=== PATIENT | male | born 1990 | race Asian ===

== ENCOUNTER 2016-12-13 03:01 | Emergency (ER) | payer OTHER ==
[~2016-12-13] VITALS: Ht 167.6 cm; Wt 64.2 kg
[2016-12-13 03:03] VITALS: TEMP 36.4; Ht 167.6 cm; Wt 64.2 kg
[2016-12-13 03:10] VITALS: O2SAT 92
[2016-12-13 03:51] LABS: BUN/CREATININE RATIO 15.2 (10-20); CALCIUM 8.8 mg/dl (8.5-10.1); CREATININE 0.89 mg/dl (0.60-1.40)
--- NOTE | 2016-12-13 06:33 | EMERGENCY ROOM VISIT NOTE ---
History Report prepared by Roshan: Deonna Carver Under the Supervision of: Dr. Tonny Barrera M.D. First contact with patient: 03:08 Chief Complaint: ALCOHOL OVERDOSE Stated Complaint: ALCOHOL Nursing Triage Summary: pt brought to ed via ems. pt was found sitting on the ground moaning in an alley. pt admits to drinking liquor. denies drugs. History of Present Illness The patient is a 26 year old male who presents to the Emergency Room with complaints of an episode of an alcohol overdose occurring prior to arrival. Per EMS, the patient was found sitting in an alley. The patient states that was drinking vodka. The patient denies vomiting. HPI limited secondary to alcohol intoxication. Source of History: patient, EMS History Limited By: intoxication Onset: prior to arrival Position: other (global) Quality: other (global) Timing: other (episode) Associated Symptoms: No vomiting Review of Systems See HPI for pertinent positives & negatives. A total of 10 systems reviewed and were otherwise negative. Past Medical & Surgical Medical Problems: (1) No Known Active Medical Problems Family History No pertinent family history Social History Smoking Status: Current Every Day Smoker Alcohol Use: occasionally Marital Status: single Housing Status: lives with roommate Occupation Status: [employer] student Current/Historical Medications Unable to Obtain Active Prescriptions or Reported Meds Allergies Coded Allergies: No Known Allergies (Unverified Allergy, Mild, 06/29/05) Physical Exam Vital Signs Date Time Temp Pulse Resp B/P (MAP) Pulse Ox O2 Delivery O2 Flow Rate FiO2 12/13/16 10:29 68 17 107/67 96 12/13/16 09:16 61 17 98/61 96 Room Air 12/13/16 08:30 67 12/13/16 08:00 65 16 94/59 96 Room Air 12/13/16 07:11 71 16 96/54 93 Room Air 12/13/16 06:00 90 16 104/84 93 Room Air 12/13/16 05:00 72 16 91/51 95 Room Air 12/13/16 04:11 72 16 116/80 94 Room Air 12/13/16 03:10 92 Room Air 12/13/16 03:10 85 12/13/16 03:03 36.4 79 16 110/65 92 Room Air Physical Exam GENERAL: Patient is heavily intoxicated. Smells of alcohol. Well appearing and in no acute distress. HEAD: No evidence of Trauma. AT/NC EYES: Injected conjunctiva. Normal EOM. Pupils equal/reactive. ENT: Mucous membranes moist, no nasal congestion, . NECK: No step-offs, no adenopathy, no meningismus, trachea is midline. LUNGS: No dyspnea. Clear to auscultation and equal bilaterally. No wheeze, no rhonchi. HEART: Regular rate and rhythm. No murmurs, rubs, gallops appreciated. ABDOMEN: Soft, nontender, bowel sounds positive, no masses appreciated, no peritonitis. BACK: No midline tenderness, no CVA tenderness EXTREMITIES: Normal motion all extremities, no cyanosis, no edema. NEUROLOGIC: Intoxicated. No acute motor or sensory deficits, no focal weakness , cranial nerves grossly intact. SKIN: No rash, no jaundice, no diaphoresis. Medical Decision & Procedures Laboratory Results 12/13/16 03:21 Test 12/13/16 03:21 Anion Gap 11.0 mmol/L (3-11) Est Creatinine Clear Calc Drug Dose 111.4 ml/min Estimated GFR () 134.9 Estimated GFR (Non- 116.4 BUN/Creatinine Ratio 15.2 (10-20) Calcium Level 8.8 mg/dl (8.5-10.1) Ethyl Alcohol mg/dL 310.0 mg/dl (0-3) Laboratory results as reviewed by me. ED Course 0310: The patient was evaluated in room B11A. A complete history and physical exam was performed. 0442: I reevaluated the patient and he was soundly asleep. The patient was discharged once he was awake, alert and sober. Medical Decision Differential: Alcohol Intoxication, Drug Intoxication, Electrolyte Abnormality, Trauma, Intracranial Event, Toxicological, Excited Delirium, Serotonin Syndrome , amongst other pathologies entertained. 26 yr old intoxicated male brought in by EMS after being found sitting in alley heavily intoxicated after admitting to drinking vodka. Patient with no evidence nor history for trauma. Protecting airway and breathing comfortably throughout ED stay. EtOH positive. Monitored and discharged when awake, alert , oriented and denies any complaints. Medication Reconcilliation Current Medication List: was personally reviewed by me Blood Pressure Screening Patient's blood pressure: Normal blood pressure Blood pressure disposition: Did not require urgent referral Impression Primary Impression: Alcohol use with intoxication Additional Impressions: Alcohol abuse Hypokalemia Scribe Attestation The scribe's documentation has been prepared under my direction and personally reviewed by me in its entirety. I confirm that the note above accurately reflects all work, treatment, procedures, and medical decision making performed by me. Departure Information Dispostion Home / Self-Care Prescriptions Unable to Obtain Active Prescriptions or Reported Meds Referrals Mabel Calderon M.D. (PCP) Patient Instructions My [facility] Additional Instructions You were evaluated in emergency department for intoxication. This is a sign of Alcohol Abuse and should not be taken lightly. You had a blood alcohol level that was significantly elevated. Over the next 24 hours keep well hydrated and eat light meals. Your potassium was mildly low. Make sure to eat a well balanced diet. Don't drink any more alcohol. This is important. Please discuss this visit with your Primary Care Provider, and/or your loved ones. If the Police were involved you will likely be cited for public intoxication. Please contact either [facility] or the [place] Police for further information. Call 911 or return to Emergency Department if you develop: Passing out, difficulty breathing, many episodes of vomiting, blood in vomit or stool, abdominal pain, fevers, or other severe symptoms. We are always here to help if you feel you need further evaluation or treatment. Problem Qualifiers
[2016-12-13 10:29] VITALS: BP 107/67; PULSE 68; O2SAT 96
== END 2016-12-13 10:31 | disposition home or self-care (01) ==
LOC: EDBD 03:01 → C.EDB 03:01
DX: F10.129 Alcohol abuse with intoxication, unspecified (principal); F10.10 Alcohol abuse, uncomplicated; E87.6 Hypokalemia; F17.200 Nicotine dependence, unspecified, uncomplicated